=== PATIENT | female | born 1965 | race Caucasian/White ===

== ENCOUNTER 2016-10-17 12:09 | Observation (INO) | payer OTHER ==
[~2016-10-17] VITALS: Ht 157.5 cm; Wt 87.2 kg
[~2016-10-17 12:09] MED LIST: ADVAIR 250/501 DISK IH; AMITRIPTYLINE100 MG PO; AMLODIPINE BESYL5 MG PO; BIOTENE ORALBAL42 GM MM; CLONIDINE HCL0.1 MG PO; CYANOCOBALAM1000 MCG PO; DIOVAN HCT 11 TABLE1 PO; DOXYCYCLINE HY100 MG PO; GABAPENTIN300 MG PO; HYDROCHLOROTHIA25 MG PO; HYDROMET SYRUP480 ML PO; LEVAQUIN750 MG PO; METHADONE10 MG PO; MS CONTIN,ORAMO15 M1 PO; MYCOSTATIN 100,60 ML PO; OXYCODONE-APAP1 EACH PO; PERCOCET 10/1 TABLET PO; PREDNISONE5 MG PO; QUETIAPINE FUMA25 MG PO; SEROQUEL12.5 MG PO; SEROQUEL50 MG PO; SPIRIVA RESPIMAT4 GM IH; TESSALON PERLE100 MG PO; TIZANIDINE HCL4 M1 PO; TIZANIDINE HCL4 MG PO; TRAZODONE HCL50 MG PO; UNABLE TO OBTAIN; VALSARTAN-HCTZ1 EAC2 PO; VENTOLIN HFA18 GM IH; XANAX0.5 MG PO; ZANAFLEX4 MG PO; ZITHROMAX500 MG PO
[2016-10-17 13:38] LABS: HEMATOCRIT 33.2 % (36.0-46.0); MCH 24.4 PG (29.0-34.0); MCHC 31.9 G/DL (30.0-36.0); MCV 76.3 FL (83-99); MEAN PLAT.VOLUME 8.7 uM^3 (9.5-12.4); PLATELET COUNT 388 K/uL (156-360); RBC DIS.WIDTH-CV 17.4 % (11.8-14.6); RBC DIS.WIDTH-SD 45.9 % (39-53); RED BLOOD COUNT 4.35 M/uL (3.80-5.20); WHITE BLOOD COUNT 20.3 K/uL (4.1-10.2)
[2016-10-17 13:39] LABS: EOSINOPHIL (%) 0.3 % (0-5); EOSINOPHIL COUNT 0.1 K/uL (0-0.3); IMMATURE GRANULOCYTE (%) 0.2 % (0.0-0.7); IMMATURE GRANULOCYTE COUNT 0.4 K/uL; LYMPHOCYTE COUNT 1.1 K/uL (1.0-2.8); MONOCYTE (%) 4.2 % (3-12); MONOCYTE COUNT 0.9 K/uL (0-0.8); NEUTROPHIL (%) 89.9 % (45-76); NEUTROPHIL COUNT 18.3 K/uL (1.8-6.4)
[2016-10-17 13:49] LABS: CHLORIDE 105 mEq/L (99-109); POTASSIUM 4.5 mEq/L (3.7-5.4); SODIUM 138 mEq/L (136-147)
[2016-10-17 13:51] LABS: GLUCOSE 131 mg/dL (70-99)
[2016-10-17 13:52] LABS: ANION GAP 10 MEQ/L (2-14)
[2016-10-17 13:53] LABS: TOTAL BILIRUBIN 0.5 mg/dL (0.0-1.0)
[2016-10-17 13:55] LABS: ALKALINE PHOSPHATASE 117 IU/L (3-129); GFR ESTIMATE (CALCULATED) > 59 mL/min/
[2016-10-17 13:56] LABS: UREA NITROGEN (BUN) 15 mg/dL (9-23)
[2016-10-17 13:58] LABS: LIPASE 22 U/L (1.0-51.0)
[2016-10-17 13:59] LABS: TROP-I INTERPRETATION NEGATIVE; TROPONIN-I < 0.01 ng/mL (0.0-0.30)
[2016-10-17 15:46] LABS: BILIRUBIN NEGATIVE; BLOOD NEGATIVE; COLOR YELLOW ((YELLOW)); GLUCOSE (STRIP) NEGATIVE; KETONES NEGATIVE; LEUKOCYTES NEGATIVE; NITRITE NEGATIVE; PROTEIN (STRIP) NEGATIVE; SPECIFIC GRAVITY 1.018 (1.000-1.030); UROBILINOGEN 0.2 MG/DL (0.2-1.0)
[2016-10-17 15:54] LABS: ADD MIUA? NO; UCUL ADDED? NO
[2016-10-17] MEDS ORDERED: AMBIEN10 MG PO (20:59)
[2016-10-17] MEDS ORDERED: TRAZODONE HCL50 MG PO (21:00)
[2016-10-17] MEDS ORDERED: LAMICTAL25 MG PO (21:00)
[2016-10-17] MEDS ORDERED: GEODON40 MG PO (21:01)
[2016-10-17] MEDS ORDERED: MOTRIN IB200 MG PO (21:01)
[2016-10-18 00:49] LABS: TROP-I INTERPRETATION NEGATIVE; TROPONIN-I < 0.01 ng/mL (0.0-0.30)
[2016-10-18 01:11] VITALS: BP 132/59
[2016-10-18 02:21] LABS: ADD MIUA? NO; BILIRUBIN NEGATIVE; BLOOD NEGATIVE; COLOR STRAW ((YELLOW)); GLUCOSE (STRIP) NEGATIVE; KETONES NEGATIVE; LEUKOCYTES NEGATIVE; NITRITE NEGATIVE; PROTEIN (STRIP) NEGATIVE; SPECIFIC GRAVITY 1.014 (1.000-1.030); UCUL ADDED? NO; UROBILINOGEN 0.2 MG/DL (0.2-1.0)
[2016-10-18 02:46] LABS: C DIFF TOXIN NEGATIVE (NEGATIVE)
[2016-10-18 02:54] LABS: PROBE CHECK PASS; SPECIMEN PROCESSING CONTROL PASS
[2016-10-18 05:00] VITALS: BP 106/54
[2016-10-18 06:57] LABS: EOSINOPHIL (%) 1.1 % (0-5); EOSINOPHIL COUNT 0.2 K/uL (0-0.3); HEMATOCRIT 24.9 % (36.0-46.0); IMMATURE GRANULOCYTE (%) 0.2 % (0.0-0.7); MCH 24.6 PG (29.0-34.0); MCHC 31.7 G/DL (30.0-36.0); MCV 77.6 FL (83-99); MONOCYTE (%) 4.5 % (3-12); MONOCYTE COUNT 0.7 K/uL (0-0.8); NEUTROPHIL (%) 73.3 % (45-76); NEUTROPHIL COUNT 10.5 K/uL (1.8-6.4); RBC DIS.WIDTH-CV 17.5 % (11.8-14.6); RBC DIS.WIDTH-SD 49.6 % (39-53); WHITE BLOOD COUNT 14.3 K/uL (4.1-10.2)
[2016-10-18 07:12] LABS: ANION GAP 9 MEQ/L (2-14); CHLORIDE 106 MEQ/L (99-109); SAMPLE HEMOLYSIS CHECK 0; SAMPLE ICTERIC CHECK 0; SAMPLE LIPEMIA CHECK 0; SODIUM 137 MEQ/L (136-147)
[2016-10-18 07:14] LABS: POTASSIUM 3.5 MEQ/L (3.7-5.4)
[2016-10-18 07:18] LABS: GFR ESTIMATE (CALCULATED) > 59 mL/min/; UREA NITROGEN (BUN) 18 mg/dL (9-23)
[2016-10-18 07:20] LABS: RED BLOOD COUNT 3.21 M/uL (3.80-5.20)
[2016-10-18 07:21] LABS: GLUCOSE 92 mg/dL (70-99); TROP-I INTERPRETATION NEGATIVE; TROPONIN-I < 0.01 ng/mL (0.0-0.30)
[2016-10-18 08:24] LABS: PLATELET COUNT UNABLE TO REPORT K/uL (156-360); USER ID TLW
[2016-10-18 08:39] VITALS: BP 93/44
[2016-10-18 12:03] VITALS: BP 143/59
[2016-10-18 12:03] LABS: HEMATOCRIT 29.4 % (36.0-46.0); MCV 77.8 FL (83-99)
[2016-10-18] MEDS ORDERED: ZOFRAN4 MG PO (14:12)
[2016-10-18] MEDS ORDERED: PROTONIX40 MG PO (14:12)
== END 2016-10-18 17:09 | disposition home or self-care (01) ==
LOC: EME → EDBD 12:09 → EDOF 23:37 → 5WEST 10-18 00:46
PROVIDERS: Emergency Medicine; Hospitalist; Internal Medicine
DX: K52.9 Noninfective gastroenteritis and colitis, unspecified (principal); R10.13 Epigastric pain; G89.29 Other chronic pain; Z79.891 Long term (current) use of opiate analgesic; Z98.84 Bariatric surgery status; Z87.898 Personal history of other specified conditions; Z88.0 Allergy status to penicillin; Z82.3 Family history of stroke; Z80.42 Family history of malignant neoplasm of prostate; Z80.52 Family history of malignant neoplasm of bladder; Z82.49 Family history of ischemic heart disease and other diseases of the circulatory system
CPT/HCPCS: 71020; 74177; 80048; 80053; 81003; 82272; 83605; 83690; 83735; 84484; 85014; 85018; 85025; 87040; 87493; 93005; 94640; 99202; 99281; 99285; C9113; G0378; J1650; J2270; J2405; J2765; J3480; J7030

== ENCOUNTER 2017-01-18 00:41 | Inpatient (IN) | payer OTHER ==
[~2017-01-18] VITALS: Ht 157.5 cm; Wt 94.2 kg
[~2017-01-18 00:41] MED LIST changes: +AMBIEN10 MG PO; +GEODON40 MG PO; +LAMICTAL25 MG PO; +MOTRIN IB200 MG PO; +PROTONIX40 MG PO; +ZOFRAN4 MG PO
[2017-01-18 01:50] LABS: HEMATOCRIT 34.2 % (36.0-46.0); MCH 23.1 PG (29.0-34.0); MCHC 29.5 G/DL (30.0-36.0); MCV 78.3 FL (83-99); MEAN PLAT.VOLUME 8.6 uM^3 (9.5-12.4); PLATELET COUNT 274 K/uL (156-360); RBC DIS.WIDTH-SD 48.2 % (39-53); RED BLOOD COUNT 4.37 M/uL (3.80-5.20); WHITE BLOOD COUNT 11.8 K/uL (4.1-10.2)
[2017-01-18 02:03] LABS: CHLORIDE 100 mEq/L (99-109); POTASSIUM 3.4 mEq/L (3.7-5.4); SODIUM 131 mEq/L (136-147)
[2017-01-18 02:05] LABS: GLUCOSE 96 mg/dL (70-99)
[2017-01-18 02:06] LABS: ANION GAP 14 MEQ/L (2-14)
[2017-01-18 02:07] LABS: TOTAL BILIRUBIN 0.2 mg/dL (0.0-1.0)
[2017-01-18 02:09] LABS: ALKALINE PHOSPHATASE 94 IU/L (3-129); GFR ESTIMATE (CALCULATED) 51 mL/min/
[2017-01-18 02:10] LABS: UREA NITROGEN (BUN) 24 mg/dL (9-23)
[2017-01-18 02:12] LABS: LIPASE 18 U/L (1.0-51.0)
[2017-01-18 02:18] LABS: TROP-I INTERPRETATION NEGATIVE; TROPONIN-I < 0.01 ng/mL (0.0-0.30)
[2017-01-18 03:53] LABS: D-DIMER ELISA 1.55 mg/L FEU (< 0.57); PTT 23.8 (25-32)
[2017-01-18 04:16] LABS: BILIRUBIN NEGATIVE; BLOOD NEGATIVE; COLOR YELLOW ((YELLOW)); GLUCOSE (STRIP) NEGATIVE; KETONES NEGATIVE; LEUKOCYTES NEGATIVE; NITRITE NEGATIVE; PROTEIN (STRIP) NEGATIVE; SPECIFIC GRAVITY 1.014 (1.000-1.030); UROBILINOGEN 0.2 MG/DL (0.2-1.0)
[2017-01-18 04:17] LABS: ADD MIUA? NO; UCUL ADDED? NO
[2017-01-18 06:02] LABS: BASE EXCESS -4.4 mEq/L (-3 to +3); BICARBONATE 22.1 mEq/L (22-26); CARBOXY HGB 0 % (0-5); METHEMOGLOBIN 0.3 % (0-1.5); PO2 72 mm Hg (80-100)
[2017-01-18 06:03] LABS: COMMENTS - BLOOD GASES A+C+; DEVICE NC; O2 FLOW 2 L/MIN; PCO2 47 mm Hg (35-45); SITE RR; pH 7.28 (7.35-7.45)
[2017-01-18 06:22] VITALS: BP 107/57
[2017-01-18 09:01] VITALS: BP 104/46
[2017-01-18 11:19] VITALS: BP 118/65
[2017-01-18 12:11] LABS: BASE EXCESS -3.2 mEq/L (-3 to +3); BICARBONATE 23.1 mEq/L (22-26); CARBOXY HGB 0 % (0-5); METHEMOGLOBIN 0.9 % (0-1.5); PCO2 47 mm Hg (35-45); PO2 64 mm Hg (80-100)
[2017-01-18 12:12] LABS: COMMENTS - BLOOD GASES +C; DEVICE NC; O2 FLOW 1 L/MIN; SITE RR +A; TOTAL RESP RATE 32 resp/min
[2017-01-18] MEDS ORDERED: TRAZODONE HCL100 MG PO (13:09)
[2017-01-18] MEDS ORDERED: LAMICTAL100 MG PO (13:09)
[2017-01-18] MEDS ORDERED: CYMBALTA60 MG PO (13:12)
[2017-01-18] MEDS ORDERED: ZOLOFT100 MG PO (13:12)
[2017-01-18] MEDS ORDERED: GABAPENTIN300 MG PO ×2 (13:12→13:26)
[2017-01-18 16:55] VITALS: BP 108/57
[2017-01-18 17:16] LABS: EOSINOPHIL (%) 0 % (0-5); HEMATOCRIT 28.6 % (36.0-46.0); IMMATURE GRANULOCYTE (%) 1.4 % (0.0-0.7); IMMATURE GRANULOCYTE COUNT 0.3 K/uL; INSTRUMENT ABS NEUTROPHIL CT 20.6 K/uL; LYMPHOCYTE COUNT 1.3 K/uL (1.0-2.8); MCH 23.3 PG (29.0-34.0); MCHC 30.1 G/DL (30.0-36.0); MCV 77.5 FL (83-99); MONOCYTE (%) 3.7 % (3-12); MONOCYTE COUNT 0.9 K/uL (0-0.8); NEUTROPHIL (%) 89.4 % (45-76); NEUTROPHIL COUNT 20.6 K/uL (1.8-6.4); RBC DIS.WIDTH-CV 17.1 % (11.8-14.6); RBC DIS.WIDTH-SD 48.1 % (39-53); RED BLOOD COUNT 3.69 M/uL (3.80-5.20)
[2017-01-18 17:21] LABS: CHLORIDE 103 mEq/L (99-109); SODIUM 133 mEq/L (136-147)
[2017-01-18 17:23] LABS: GLUCOSE 87 mg/dL (70-99)
[2017-01-18 17:24] LABS: ANION GAP 8 MEQ/L (2-14)
[2017-01-18 17:26] LABS: GFR ESTIMATE (CALCULATED) > 59 mL/min/
[2017-01-18 17:27] LABS: UREA NITROGEN (BUN) 21 mg/dL (9-23)
[2017-01-18 17:54] LABS: HEMATOLOGY COMMENT 1 SN; MEAN PLAT.VOLUME 9.4 uM^3 (9.5-12.4); PLAT.SUFFICIENCY ADEQUATE; PLATELET COUNT 246 K/uL (156-360)
[2017-01-18 18:03] LABS: WHITE BLOOD COUNT 23.1 K/uL (4.1-10.2)
[2017-01-18 19:30] VITALS: BP 110/56
[2017-01-19 00:20] VITALS: BP 121/58
[2017-01-19 04:30] VITALS: BP 115/56
[2017-01-19 07:55] LABS: EOSINOPHIL (%) 0.6 % (0-5); EOSINOPHIL COUNT 0.1 K/uL (0-0.3); HEMATOCRIT 25.3 % (36.0-46.0); IMMATURE GRANULOCYTE (%) 0.5 % (0.0-0.7); IMMATURE GRANULOCYTE COUNT 0.1 K/uL; LYMPHOCYTE COUNT 1.4 K/uL (1.0-2.8); MCH 23.5 PG (29.0-34.0); MCHC 30.4 G/DL (30.0-36.0); MCV 77.4 FL (83-99); MEAN PLAT.VOLUME 9.7 uM^3 (9.5-12.4); MONOCYTE (%) 3.1 % (3-12); MONOCYTE COUNT 0.5 K/uL (0-0.8); NEUTROPHIL (%) 86.4 % (45-76); PLATELET COUNT 258 K/uL (156-360); RBC DIS.WIDTH-CV 17.2 % (11.8-14.6); RBC DIS.WIDTH-SD 48.8 % (39-53); RED BLOOD COUNT 3.27 M/uL (3.80-5.20)
[2017-01-19 08:12] LABS: INTERNAL CONTROL VALID? YES
[2017-01-19 08:24] LABS: CHLORIDE 111 mEq/L (99-109); POTASSIUM 4.1 mEq/L (3.7-5.4)
[2017-01-19 08:25] LABS: MAGNESIUM 2.1 mg/dL (1.3-2.7); SODIUM 144 mEq/L (136-147)
[2017-01-19 08:27] LABS: GLUCOSE 89 mg/dL (70-99)
[2017-01-19 08:28] LABS: ANION GAP 8 MEQ/L (2-14)
[2017-01-19 08:30] LABS: ALKALINE PHOSPHATASE 83 IU/L (3-129); GFR ESTIMATE (CALCULATED) > 59 mL/min/; TOTAL BILIRUBIN 0.3 mg/dL (0.0-1.0)
[2017-01-19 08:31] LABS: UREA NITROGEN (BUN) 17 mg/dL (9-23)
[2017-01-19 10:35] VITALS: BP 110/56
[2017-01-19] MEDS ORDERED: RISPERDAL1 MG PO (12:31)
[2017-01-19 12:36] LABS: HEMATOCRIT 25.6 % (36.0-46.0); MCV 77.6 FL (83-99)
[2017-01-19 12:45] VITALS: BP 165/79
[2017-01-19 16:33] VITALS: BP 117/70
[2017-01-19 19:23] VITALS: BP 128/81
[2017-01-20 00:05] VITALS: BP 120/78
[2017-01-20 04:34] VITALS: BP 116/72
[2017-01-20 08:50] LABS: HEMATOCRIT 24.7 % (36.0-46.0); MCH 23.5 PG (29.0-34.0); MCHC 30.8 G/DL (30.0-36.0); MCV 76.5 FL (83-99); MEAN PLAT.VOLUME 9.3 uM^3 (9.5-12.4); PLATELET COUNT 262 K/uL (156-360); RBC DIS.WIDTH-CV 17.3 % (11.8-14.6); RBC DIS.WIDTH-SD 47.3 % (39-53); RED BLOOD COUNT 3.23 M/uL (3.80-5.20); WHITE BLOOD COUNT 11.8 K/uL (4.1-10.2)
[2017-01-20 09:06] LABS: CHLORIDE 110 mEq/L (99-109); GLUCOSE 92 mg/dL (70-99); POTASSIUM 4.2 mEq/L (3.7-5.4); SODIUM 144 mEq/L (136-147)
[2017-01-20 09:07] VITALS: BP 130/90
[2017-01-20 09:07] LABS: ANION GAP 8 MEQ/L (2-14)
[2017-01-20 09:09] LABS: ALKALINE PHOSPHATASE 81 IU/L (3-129)
[2017-01-20 09:10] LABS: GFR ESTIMATE (CALCULATED) > 59 mL/min/
[2017-01-20 09:11] LABS: TOTAL BILIRUBIN 0.4 mg/dL (0.0-1.0); UREA NITROGEN (BUN) 10 mg/dL (9-23)
[2017-01-20 10:18] LABS: IRON 24 MCG/DL (35-150)
[2017-01-20 10:28] LABS: FERRITIN 59 NG/ML (10-291)
[2017-01-20 11:55] VITALS: BP 173/86
[2017-01-20] MEDS ORDERED: PANTOPRAZOLE SO40 MG PO (12:36)
[2017-01-20] MEDS ORDERED: CYANOCOBALAM1000 MCG PO (12:37)
[2017-01-20] MEDS ORDERED: LEVAQUIN750 MG PO (12:37)
[2017-01-20] MEDS ORDERED: FLOVENT 11120 INHALA IH (12:38)
[2017-01-20 14:11] LABS: IMM.RETIC FRACTION 25.5 % (3-19); RETIC HGB EQUIVALENT 29.7 (28-36); RETICULOCYTE COUNT 1.1 % (0.5-1.8)
== END 2017-01-20 15:54 | disposition home or self-care (01) | DRG 871 ==
LOC: EME → EDBD 00:41 → EDOF 04:33 → 4EAST 04:33 → 5SOUTH 04:33 → 4EAST 07:12 → 5SOUTH 01-19 21:18 → 4EAST 01-19 21:27
PROVIDERS: Emergency Medicine; Hospitalist; Physician Assistant Medical
DX: A41.9 Sepsis, unspecified organism (principal); J69.0 Pneumonitis due to inhalation of food and vomit; J96.01 Acute respiratory failure with hypoxia; E87.4 Mixed disorder of acid-base balance; D64.9 Anemia, unspecified; I10 Essential (primary) hypertension; G89.29 Other chronic pain; R56.9 Unspecified convulsions; K44.9 Diaphragmatic hernia without obstruction or gangrene; E78.5 Hyperlipidemia, unspecified; R91.1 Solitary pulmonary nodule; F31.9 Bipolar disorder, unspecified; M54.9 Dorsalgia, unspecified; F41.9 Anxiety disorder, unspecified; F41.0 Panic disorder [episodic paroxysmal anxiety]; E66.9 Obesity, unspecified; F10.10 Alcohol abuse, uncomplicated; Z68.38 Body mass index [BMI] 38.0-38.9, adult; G43.909 Migraine, unspecified, not intractable, without status migrainosus; Z87.898 Personal history of other specified conditions; Z98.1 Arthrodesis status; Z90.49 Acquired absence of other specified parts of digestive tract; Z88.0 Allergy status to penicillin; Z98.84 Bariatric surgery status; Z87.01 Personal history of pneumonia (recurrent); Z68.41 Body mass index [BMI] 40.0-44.9, adult
CPT/HCPCS: 36600; 71020; 71275; 80048 91; 80053; 81003; 82607; 82728; 82746; 82803; 82948; 83540; 83605; 83690; 83735; 83880; 84466; 84484; 85014; 85018; 85025; 85027; 85045; 85379; 85610; 85730; 87040; 87070; 87205; 87449; 93005; 94640; 94640 76; 94760; 94799; 99202; 99281; 99285; J1650; J1956; J3420; J7030; J7050; J7120; J7644; Q0138; S0030

== ENCOUNTER 2017-02-19 00:15 | Observation (INO) | payer OTHER ==
[~2017-02-19] VITALS: Ht 157.5 cm; Wt 88.7 kg
[~2017-02-19 00:15] MED LIST changes: +CYMBALTA60 MG PO; +FLOVENT 11120 INHALA IH; +LAMICTAL100 MG PO; +PANTOPRAZOLE SO40 MG PO; +RISPERDAL1 MG PO; +TRAZODONE HCL100 MG PO; +ZOLOFT100 MG PO
[2017-02-19 01:22] LABS: CHLORIDE 104 mEq/L (99-109); POTASSIUM 3.4 mEq/L (3.7-5.4); PROTHROMBIN TIME 10.2 (9.2-11.2); PTT 24.6 (25-32); SODIUM 139 mEq/L (136-147)
[2017-02-19 01:25] LABS: GLUCOSE 87 mg/dL (70-99)
[2017-02-19 01:26] LABS: ANION GAP 11 MEQ/L (2-14)
[2017-02-19 01:27] LABS: TOTAL BILIRUBIN 0.2 mg/dL (0.0-1.0)
[2017-02-19 01:28] LABS: ALKALINE PHOSPHATASE 117 IU/L (3-129); GFR ESTIMATE (CALCULATED) > 59 mL/min/
[2017-02-19 01:28] LABS: EOSINOPHIL (%) 1.5 % (0-5); EOSINOPHIL COUNT 0.1 K/uL (0-0.3); HEMATOCRIT 37.9 % (36.0-46.0); IMMATURE GRANULOCYTE (%) 0.4 % (0.0-0.7); INSTRUMENT ABS NEUTROPHIL CT 4.5 K/uL; LYMPHOCYTE COUNT 1.8 K/uL (1.0-2.8); MCH 25.5 PG (29.0-34.0); MCHC 30.9 G/DL (30.0-36.0); MEAN PLAT.VOLUME 9.1 uM^3 (9.5-12.4); MONOCYTE (%) 5.3 % (3-12); MONOCYTE COUNT 0.4 K/uL (0-0.8); NEUTROPHIL (%) 66.1 % (45-76); NEUTROPHIL COUNT 4.5 K/uL (1.8-6.4); PLATELET COUNT 230 K/uL (156-360); RBC DIS.WIDTH-CV 22.2 % (11.8-14.6); RBC DIS.WIDTH-SD 65.4 % (39-53); WHITE BLOOD COUNT 6.8 K/uL (4.1-10.2)
[2017-02-19 01:29] LABS: MCV 82.8 FL (83-99); RED BLOOD COUNT 4.58 M/uL (3.80-5.20)
[2017-02-19 01:29] LABS: UREA NITROGEN (BUN) 7 mg/dL (9-23)
[2017-02-19 01:32] LABS: LIPASE 15 U/L (1.0-51.0); TROP-I INTERPRETATION NEGATIVE; TROPONIN-I < 0.01 ng/mL (0.0-0.30)
[2017-02-19 03:22] LABS: ADD MIUA? NO; BILIRUBIN NEGATIVE; BLOOD NEGATIVE; COLOR STRAW ((YELLOW)); GLUCOSE (STRIP) NEGATIVE; KETONES NEGATIVE; LEUKOCYTES NEGATIVE; NITRITE NEGATIVE; PROTEIN (STRIP) NEGATIVE; SPECIFIC GRAVITY 1.004 (1.000-1.030); UCUL ADDED? NO; UROBILINOGEN 0.2 MG/DL (0.2-1.0)
[2017-02-19 06:29] VITALS: BP 171/86
[2017-02-19] MEDS ORDERED: CYMBALTA30 MG PO (11:02)
[2017-02-19] MEDS ORDERED: CYANOCOBALAM1000 MCG PO (11:05)
[2017-02-19] MEDS ORDERED: SERTRALINE HCL100 MG PO (11:05)
[2017-02-19] MEDS ORDERED: VALSARTAN-HCTZ1 EAC2 PO (11:11)
[2017-02-19 12:07] LABS: TROP-I INTERPRETATION NEGATIVE; TROPONIN-I < 0.01 ng/mL (0.0-0.30)
[2017-02-19 12:17] LABS: AMPHETAMINES QUANT VALUE 0 NG/ML; BARBITUATES QUANT VALUE 0 NG/ML; BENZODIAZEPINES QUANT VALUE 0 NG/ML; BENZODIAZEPINES, URINE SCREEN Negative (200 ng/mL); MARIJUANA QUANT VALUE 0 NG/ML; OPIATES QUANTITATIVE VALUE 0 NG/ML; PHENCYCLIDINE QUANT VALUE 0 NG/ML
[2017-02-19 16:53] VITALS: BP 177/114
[2017-02-19 18:18] LABS: TROP-I INTERPRETATION NEGATIVE; TROPONIN-I < 0.01 ng/mL (0.0-0.30)
[2017-02-19 18:49] VITALS: BP 178/91
== END 2017-02-19 22:52 | disposition home or self-care (01) ==
LOC: EME → EDBD 00:15 → EDOF 04:29 → 5WEST 06:17
PROVIDERS: Emergency Medicine; Hospitalist
DX: R55 Syncope and collapse (principal); E86.0 Dehydration; E11.9 Type 2 diabetes mellitus without complications; I10 Essential (primary) hypertension; F31.9 Bipolar disorder, unspecified; G43.909 Migraine, unspecified, not intractable, without status migrainosus; J45.909 Unspecified asthma, uncomplicated; E78.00 Pure hypercholesterolemia, unspecified; G89.29 Other chronic pain; M54.9 Dorsalgia, unspecified; F11.20 Opioid dependence, uncomplicated; F41.0 Panic disorder [episodic paroxysmal anxiety]; Z98.84 Bariatric surgery status; E66.9 Obesity, unspecified; Z68.35 Body mass index [BMI] 35.0-35.9, adult
CPT/HCPCS: 70450; 71010; 80053; 80306 90; 81003; 83605; 83690; 84484; 85025; 85610; 85730; 87040; 93005; 93880; 95819; 99281; 99284; G0378; J7030

== ENCOUNTER 2017-06-16 16:39 | Inpatient (IN) | payer OTHER ==
[~2017-06-16] VITALS: Ht 157.5 cm; Wt 90.0 kg
[~2017-06-16 16:39] MED LIST changes: +CYMBALTA30 MG PO; +SERTRALINE HCL100 MG PO
[2017-06-16 18:10] LABS: HEMATOCRIT 38.9 % (36.0-46.0); MCH 28.5 PG (29.0-34.0); MCHC 34.2 G/DL (30.0-36.0); MCV 83.3 FL (83-99); MEAN PLAT.VOLUME 9.2 uM^3 (9.5-12.4); PLATELET COUNT 493 K/uL (156-360); RBC DIS.WIDTH-CV 15.6 % (11.8-14.6); RBC DIS.WIDTH-SD 47.2 % (39-53); RED BLOOD COUNT 4.67 M/uL (3.80-5.20); WHITE BLOOD COUNT 8.4 K/uL (4.1-10.2)
[2017-06-16 18:21] LABS: CHLORIDE 108 mEq/L (99-109); POTASSIUM 3.3 mEq/L (3.7-5.4); SODIUM 143 mEq/L (136-147)
[2017-06-16 18:22] LABS: GLUCOSE 97 mg/dL (70-99)
[2017-06-16 18:24] LABS: ANION GAP 19 MEQ/L (2-14)
[2017-06-16 18:34] LABS: TROP-I INTERPRETATION NEGATIVE; TROPONIN-I 0.01 ng/mL (0.0-0.30)
[2017-06-16 18:41] LABS: GFR ESTIMATE (CALCULATED) > 59 mL/min/; UREA NITROGEN (BUN) 18 mg/dL (9-23)
[2017-06-16 18:49] LABS: QUANTITATIVE HCG < 4.0 MIU/ML
[2017-06-16 20:52] VITALS: BP 167/95
[2017-06-16] MEDS ORDERED: DESYREL100 MG PO (21:17)
[2017-06-16] MEDS ORDERED: TYLENOL EXTRA500 MG PO (21:18)
[2017-06-17 00:04] VITALS: BP 108/66
[2017-06-17 01:08] LABS: TROP-I INTERPRETATION NEGATIVE; TROPONIN-I < 0.01 ng/mL (0.0-0.30)
[2017-06-17 04:31] VITALS: BP 97/62
[2017-06-17 05:46] LABS: TROP-I INTERPRETATION NEGATIVE; TROPONIN-I < 0.01 ng/mL (0.0-0.30)
[2017-06-17 06:02] LABS: ANION GAP 10 MEQ/L (2-14); CHLORIDE 110 MEQ/L (99-109); GFR ESTIMATE (CALCULATED) 51 mL/min/; GLUCOSE 85 mg/dL (70-99); HDL CHOLESTEROL 43 MG/DL (Desirable>=50); LDL CHOLESTEROL 134 mg/dL (Desirable<100); MAGNESIUM 1.4 mg/dl (1.3-2.7); NON-HDL CHOLESTEROL 154 mg/dL (Desirable<160); POTASSIUM 3.6 MEQ/L (3.7-5.4); SAMPLE HEMOLYSIS CHECK 0; SAMPLE ICTERIC CHECK 0; SAMPLE LIPEMIA CHECK 0; SODIUM 140 MEQ/L (136-147); TOTAL CHOLESTEROL 197 mg/dL (Desirable<200); TRIGLYCERIDES 101 MG/DL (Normal: <150); UREA NITROGEN (BUN) 20 mg/dL (9-23)
[2017-06-17 06:13] LABS: SERUM ETHYL ALCOHOL < 10 mg/dL
[2017-06-17 06:30] LABS: HEMATOCRIT 32.8 % (36.0-46.0); MCH 28.9 PG (29.0-34.0); MCHC 32.9 G/DL (30.0-36.0); MEAN PLAT.VOLUME 10.3 uM^3 (9.5-12.4); PLATELET COUNT 359 K/uL (156-360); RBC DIS.WIDTH-CV 16.3 % (11.8-14.6); RBC DIS.WIDTH-SD 52.3 % (39-53); RED BLOOD COUNT 3.74 M/uL (3.80-5.20); WHITE BLOOD COUNT 7.8 K/uL (4.1-10.2)
[2017-06-17 06:32] LABS: MCV 87.7 FL (83-99)
[2017-06-17 08:56] VITALS: BP 84/58
[2017-06-17 11:55] VITALS: BP 88/62
[2017-06-17 13:30] LABS: ADD MIUA? NO; BILIRUBIN NEGATIVE; BLOOD NEGATIVE; COLOR YELLOW ((YELLOW)); GLUCOSE (STRIP) NEGATIVE; KETONES NEGATIVE; LEUKOCYTES NEGATIVE; NITRITE NEGATIVE; PROTEIN (STRIP) NEGATIVE; SPECIFIC GRAVITY 1.017 (1.000-1.030); UCUL ADDED? NO
[2017-06-17 13:31] LABS: AMPHETAMINES QUANT VALUE 0 NG/ML; BARBITUATES QUANT VALUE 0 NG/ML; BENZODIAZEPINES QUANT VALUE 0 NG/ML; BENZODIAZEPINES, URINE SCREEN Negative (200 ng/mL); MARIJUANA QUANT VALUE 0 NG/ML; OPIATES QUANTITATIVE VALUE 0 NG/ML; PHENCYCLIDINE QUANT VALUE 0 NG/ML
[2017-06-17 14:29] VITALS: BP 98/72
[2017-06-17 15:48] VITALS: BP 114/72
[2017-06-18] VITALS (7 sets, daily range): BP systolic 93–135; BP diastolic 48–71
[2017-06-18 05:13] LABS: BASOPHIL COUNT 0.1 K/uL (0-0.1); EOSINOPHIL (%) 2.9 % (0-5); EOSINOPHIL COUNT 0.3 K/uL (0-0.3); HEMATOCRIT 31.9 % (36.0-46.0); IMMATURE GRANULOCYTE (%) 0.2 % (0.0-0.7); INSTRUMENT ABS NEUTROPHIL CT 5.6 K/uL; LYMPHOCYTE COUNT 2.6 K/uL (1.0-2.8); MCH 27.8 PG (29.0-34.0); MCHC 30.7 G/DL (30.0-36.0); MCV 90.6 FL (83-99); MEAN PLAT.VOLUME 9.1 uM^3 (9.5-12.4); MONOCYTE (%) 5.8 % (3-12); MONOCYTE COUNT 0.5 K/uL (0-0.8); NEUTROPHIL (%) 61.4 % (45-76); NEUTROPHIL COUNT 5.6 K/uL (1.8-6.4); PLATELET COUNT 321 K/uL (156-360); RBC DIS.WIDTH-CV 16.4 % (11.8-14.6); RBC DIS.WIDTH-SD 54.4 % (39-53); RED BLOOD COUNT 3.52 M/uL (3.80-5.20)
[2017-06-18 05:34] LABS: ALKALINE PHOSPHATASE 121 IU/L (3-129); ANION GAP 10 MEQ/L (2-14); CHLORIDE 108 MEQ/L (99-109); GFR ESTIMATE (CALCULATED) 39 mL/min/; GLUCOSE 102 mg/dL (70-99); SAMPLE HEMOLYSIS CHECK 0; SAMPLE ICTERIC CHECK 0; SAMPLE LIPEMIA CHECK 0; SODIUM 140 MEQ/L (136-147); TOTAL BILIRUBIN 0.6 MG/DL (0.0-1.0); UREA NITROGEN (BUN) 27 mg/dL (9-23)
[2017-06-19 04:29] VITALS: BP 117/58
[2017-06-19 07:55] VITALS: BP 115/87
[2017-06-19 10:59] VITALS: BP 114/57
[2017-06-19 12:08] LABS: ANION GAP 4 MEQ/L (2-14); CHLORIDE 111 MEQ/L (99-109); GFR ESTIMATE (CALCULATED) > 59 mL/min/; GLUCOSE 89 mg/dL (70-99); POTASSIUM 4.1 MEQ/L (3.7-5.4); SAMPLE HEMOLYSIS CHECK 0; SAMPLE ICTERIC CHECK 0; SAMPLE LIPEMIA CHECK 0; SODIUM 142 MEQ/L (136-147); UREA NITROGEN (BUN) 19 mg/dL (9-23)
[2017-06-19 16:45] VITALS: BP 124/65
[2017-06-19 19:20] VITALS: BP 137/74
[2017-06-19 23:24] VITALS: BP 140/85
[2017-06-20 04:32] VITALS: BP 119/78
[2017-06-20 08:15] VITALS: BP 160/84
[2017-06-20 12:13] VITALS: BP 117/62
[2017-06-20] MEDS ORDERED: METHADONE10 MG PO (16:25)
== END 2017-06-20 17:07 | disposition home or self-care (01) | DRG 897 ==
LOC: EME 16:39 → EDOF 19:29 → 5WEST 19:29 → EDOF 19:29 → ENRESERV 19:30 → 5WEST 20:40 → CANRESERV 06-17 15:26 → ENRESERV 06-17 15:26 → 5WEST 06-20 17:07
PROVIDERS: Hospitalist; Physician Assistant Medical
DX: F19.959 Other psychoactive substance use, unspecified with psychoactive substance-induced psychotic disorder, unspecified (principal); F23 Brief psychotic disorder; F10.21 Alcohol dependence, in remission; I95.9 Hypotension, unspecified; I10 Essential (primary) hypertension; N17.9 Acute kidney failure, unspecified; E11.9 Type 2 diabetes mellitus without complications; I25.10 Atherosclerotic heart disease of native coronary artery without angina pectoris; F31.9 Bipolar disorder, unspecified; E87.6 Hypokalemia; F17.210 Nicotine dependence, cigarettes, uncomplicated; E53.8 Deficiency of other specified B group vitamins; F41.1 Generalized anxiety disorder; Z68.36 Body mass index [BMI] 36.0-36.9, adult; E78.5 Hyperlipidemia, unspecified; F41.0 Panic disorder [episodic paroxysmal anxiety]; K21.9 Gastro-esophageal reflux disease without esophagitis; Z79.899 Other long term (current) drug therapy; Z98.84 Bariatric surgery status; Z79.891 Long term (current) use of opiate analgesic; Z88.0 Allergy status to penicillin; J45.909 Unspecified asthma, uncomplicated; Z82.49 Family history of ischemic heart disease and other diseases of the circulatory system
CPT/HCPCS: 70450; 71020; 80048; 80053; 80061; 80306 90; 81003; 82140; 83605; 83735; 84484; 84702; 85025; 85027; 93005; 94799; 99202; 99281; 99285; G0378; G0480; G8987 GO CI; G8988 GO CH; J1644; J2060; J3411; J3475; J7030; J7050; S0028

== ENCOUNTER 2017-09-08 18:17 | Inpatient (IN) | payer OTHER ==
[~2017-09-08] VITALS: Ht 157.5 cm; Wt 88.8 kg
[~2017-09-08 18:17] MED LIST changes: +DESYREL100 MG PO; +TYLENOL EXTRA500 MG PO
[2017-09-08 19:51] LABS: HEMATOCRIT 41.1 % (36.0-46.0); HEMOGLOBIN 13.8 G/DL (11.9-15.5); MCH 28.8 PG (29.0-34.0); MCHC 33.6 G/DL (30.0-36.0); MCV 85.8 FL (83-99); PLATELET COUNT 567 K/uL (156-360); RBC DIS.WIDTH-CV 15.1 % (11.8-14.6); RBC DIS.WIDTH-SD 47.2 % (39-53); RED BLOOD COUNT 4.79 M/uL (3.80-5.20); WHITE BLOOD COUNT 24.8 K/uL (4.1-10.2)
[2017-09-08 20:11] LABS: ALBUMIN 4.1 g/dL (3.2-4.8); CHLORIDE 98 mEq/L (99-109); POTASSIUM 3.5 mEq/L (3.7-5.4); SODIUM 134 mEq/L (136-147)
[2017-09-08 20:13] LABS: GLUCOSE 144 mg/dL (70-99)
[2017-09-08 20:14] LABS: TOTAL PROTEIN 8.3 g/dL (6.4-8.3)
[2017-09-08 20:15] LABS: TOTAL BILIRUBIN 0.5 mg/dL (0.0-1.0)
[2017-09-08 20:17] LABS: ALKALINE PHOSPHATASE 165 IU/L (3-129); CREATININE 2.2 mg/dL (0.6-1.3); GFR ESTIMATE (CALCULATED) 25 mL/min/
[2017-09-08 20:18] LABS: UREA NITROGEN (BUN) 21 mg/dL (9-23)
[2017-09-08 20:19] LABS: AST (GOT) 13 IU/L (2-34)
[2017-09-08 20:20] LABS: ALT (GPT) 5 IU/L (3-49)
[2017-09-08 23:08] LABS: LIPASE 19 U/L (1.0-51.0)
[2017-09-09] MEDS ORDERED: OXYCODONE-APAP1 EACH PO (00:38)
[2017-09-09 04:42] LABS: BASOPHIL (%) 0.1 % (0-1); EOSINOPHIL (%) 0 % (0-5); HEMATOCRIT 40.4 % (36.0-46.0); HEMOGLOBIN 13.4 G/DL (11.9-15.5); IMMATURE GRANULOCYTE (%) 0.9 % (0.0-0.7); LYMPHOCYTE (%) 7.5 % (15-42); LYMPHOCYTE COUNT 1.7 K/uL (1.0-2.8); MCH 28.6 PG (29.0-34.0); MCHC 33.2 G/DL (30.0-36.0); MCV 86.1 FL (83-99); MONOCYTE (%) 4.2 % (3-12); NEUTROPHIL (%) 87.3 % (45-76); NEUTROPHIL COUNT 20.1 K/uL (1.8-6.4); PLATELET COUNT 508 K/uL (156-360); RBC DIS.WIDTH-CV 15.4 % (11.8-14.6); RBC DIS.WIDTH-SD 48.1 % (39-53); RED BLOOD COUNT 4.69 M/uL (3.80-5.20)
[2017-09-09 04:53] LABS: CHLORIDE 98 mEq/L (99-109); POTASSIUM 3.6 mEq/L (3.7-5.4); SODIUM 136 mEq/L (136-147)
[2017-09-09 04:55] LABS: GLUCOSE 162 mg/dL (70-99)
[2017-09-09 04:59] LABS: CREATININE 3.1 mg/dL (0.6-1.3); GFR ESTIMATE (CALCULATED) 17 mL/min/; UREA NITROGEN (BUN) 29 mg/dL (9-23)
[2017-09-09] MEDS ORDERED: METHADONE10 MG PO (16:52)
[2017-09-09 16:53] VITALS: BP 143/68
[2017-09-09 20:17] VITALS: BP 148/74
[2017-09-10 00:18] VITALS: BP 143/80
[2017-09-10 07:22] LABS: HEMATOCRIT 30.9 % (36.0-46.0); MCH 28.9 PG (29.0-34.0); MCHC 32.4 G/DL (30.0-36.0); MCV 89.3 FL (83-99); PLATELET COUNT 361 K/uL (156-360); RBC DIS.WIDTH-CV 15.5 % (11.8-14.6); RBC DIS.WIDTH-SD 50.3 % (39-53); WHITE BLOOD COUNT 10.2 K/uL (4.1-10.2)
[2017-09-10 07:23] LABS: RED BLOOD COUNT 3.46 M/uL (3.80-5.20)
[2017-09-10 07:45] LABS: CHLORIDE 106 MEQ/L (99-109); MAGNESIUM 2.5 mg/dl (1.3-2.7); PHOSPHORUS 2.6 mg/dL (2.5-4.9); POTASSIUM 3.8 MEQ/L (3.7-5.4); SODIUM 141 MEQ/L (136-147); UREA NITROGEN (BUN) 22 mg/dL (9-23)
[2017-09-10 07:47] LABS: CREATININE 1.1 MG/DL (0.6-1.3); GFR ESTIMATE (CALCULATED) 56 mL/min/; GLUCOSE 86 mg/dL (70-99)
[2017-09-10 09:08] VITALS: BP 131/76
[2017-09-10 12:38] VITALS: BP 130/75
[2017-09-10 16:13] VITALS: BP 132/70
[2017-09-11 00:29] VITALS: BP 148/72
[2017-09-11 06:55] LABS: HEMOGLOBIN 10.5 G/DL (11.9-15.5); MCH 28.2 PG (29.0-34.0); MCHC 31.8 G/DL (30.0-36.0); MCV 88.7 FL (83-99); PLATELET COUNT 370 K/uL (156-360); RBC DIS.WIDTH-CV 14.9 % (11.8-14.6); RBC DIS.WIDTH-SD 47.9 % (39-53); RED BLOOD COUNT 3.72 M/uL (3.80-5.20)
[2017-09-11 07:19] LABS: CHLORIDE 108 MEQ/L (99-109); GFR ESTIMATE (CALCULATED) > 59 mL/min/; GLUCOSE 90 mg/dL (70-99); POTASSIUM 3.3 MEQ/L (3.7-5.4); SODIUM 144 MEQ/L (136-147); UREA NITROGEN (BUN) 9 mg/dL (9-23)
[2017-09-11 07:20] LABS: CREATININE 0.6 MG/DL (0.6-1.3)
[2017-09-11 08:19] VITALS: BP 135/84
[2017-09-11 16:11] VITALS: BP 153/92
[2017-09-11 16:36] VITALS: BP 136/75
[2017-09-12 00:18] VITALS: BP 176/102
[2017-09-12 07:55] VITALS: BP 154/109
[2017-09-12 07:57] LABS: HEMATOCRIT 35.3 % (36.0-46.0); HEMOGLOBIN 11.4 G/DL (11.9-15.5); MCH 28.2 PG (29.0-34.0); MCHC 32.3 G/DL (30.0-36.0); MCV 87.4 FL (83-99); RBC DIS.WIDTH-CV 14.8 % (11.8-14.6); RBC DIS.WIDTH-SD 47.4 % (39-53); RED BLOOD COUNT 4.04 M/uL (3.80-5.20); WHITE BLOOD COUNT 8.2 K/uL (4.1-10.2)
[2017-09-12 08:06] LABS: CHLORIDE 107 MEQ/L (99-109); POTASSIUM 3.6 MEQ/L (3.7-5.4); SODIUM 144 MEQ/L (136-147)
[2017-09-12 08:11] LABS: CREATININE 0.5 MG/DL (0.6-1.3); GFR ESTIMATE (CALCULATED) > 59 mL/min/; GLUCOSE 94 mg/dL (70-99); UREA NITROGEN (BUN) 6 mg/dL (9-23)
[2017-09-12 08:30] LABS: HEMATOLOGY COMMENT 1 SMEAR COMPATIBLE; PLAT.SUFFICIENCY INCREASED; PLATELET COUNT 411 K/uL (156-360)
[2017-09-12 15:54] VITALS: BP 168/99
[2017-09-13 00:45] VITALS: BP 160/43
[2017-09-13 07:08] LABS: HEMOGLOBIN 10.7 G/DL (11.9-15.5); MCH 28.5 PG (29.0-34.0); MCHC 32.4 G/DL (30.0-36.0); PLATELET COUNT 352 K/uL (156-360); RBC DIS.WIDTH-CV 15.3 % (11.8-14.6); RED BLOOD COUNT 3.75 M/uL (3.80-5.20); WHITE BLOOD COUNT 8.9 K/uL (4.1-10.2)
[2017-09-13 07:18] VITALS: BP 132/90
[2017-09-13 07:27] LABS: CHLORIDE 106 MEQ/L (99-109); CREATININE 0.6 MG/DL (0.6-1.3); GFR ESTIMATE (CALCULATED) > 59 mL/min/; GLUCOSE 100 mg/dL (70-99); POTASSIUM 4.2 MEQ/L (3.7-5.4); SODIUM 144 MEQ/L (136-147); UREA NITROGEN (BUN) 4 mg/dL (9-23)
== END 2017-09-13 11:30 | disposition home or self-care (01) | DRG 388 ==
LOC: EME 18:17 → EDOF 09-09 02:42 → 5SOUTH 09-09 02:42 → ENRESERV 09-09 02:48 → 5SOUTH 09-09 15:09 → ENPENDDIS 09-13 → 5SOUTH 09-13 11:30
PROVIDERS: Hospitalist; Physician Assistant; Thoracic Surgery (Cardiothoracic Vascular Surgery)
DX: K56.609 Unspecified intestinal obstruction, unspecified as to partial versus complete obstruction (principal); N17.0 Acute kidney failure with tubular necrosis; I95.9 Hypotension, unspecified; R65.10 Systemic inflammatory response syndrome (SIRS) of non-infectious origin without acute organ dysfunction; E86.0 Dehydration; E87.2 Acidosis; E87.6 Hypokalemia; F11.20 Opioid dependence, uncomplicated; E11.9 Type 2 diabetes mellitus without complications; G40.909 Epilepsy, unspecified, not intractable, without status epilepticus; I10 Essential (primary) hypertension; K21.9 Gastro-esophageal reflux disease without esophagitis; J45.909 Unspecified asthma, uncomplicated; G89.4 Chronic pain syndrome; M54.9 Dorsalgia, unspecified; E78.5 Hyperlipidemia, unspecified; G43.909 Migraine, unspecified, not intractable, without status migrainosus; F31.9 Bipolar disorder, unspecified; F41.1 Generalized anxiety disorder; E66.9 Obesity, unspecified; Z68.35 Body mass index [BMI] 35.0-35.9, adult; F10.11 Alcohol abuse, in remission; F14.11 Cocaine abuse, in remission; Z82.3 Family history of stroke; Z82.49 Family history of ischemic heart disease and other diseases of the circulatory system; Z83.3 Family history of diabetes mellitus; Z98.84 Bariatric surgery status
CPT/HCPCS: 71045; 74176; 80048; 80053; 81003; 82948; 83605; 83690; 83735; 84100; 85025; 85027; 87040; 94799; 99281; 99285; J0692; J1170; J1644; J2060; J2270; J2405; J3480; J7030; J7042; J7120; S0028; S0030

== ENCOUNTER 2017-09-19 15:45 | Inpatient (IN) | payer OTHER ==
[~2017-09-19] VITALS: Ht 157.5 cm; Wt 90.4 kg
[2017-09-19 16:51] LABS: BASOPHIL (%) 0.2 % (0-1); EOSINOPHIL (%) 0.6 % (0-5); EOSINOPHIL COUNT 0.1 K/uL (0-0.3); HEMOGLOBIN 10.1 G/DL (11.9-15.5); IMMATURE GRANULOCYTE (%) 0.4 % (0.0-0.7); LYMPHOCYTE COUNT 1.2 K/uL (1.0-2.8); MCH 28.7 PG (29.0-34.0); MCHC 32.6 G/DL (30.0-36.0); MCV 88.1 FL (83-99); MONOCYTE (%) 3.5 % (3-12); MONOCYTE COUNT 0.5 K/uL (0-0.8); NEUTROPHIL (%) 86.3 % (45-76); NEUTROPHIL COUNT 11.5 K/uL (1.8-6.4); RBC DIS.WIDTH-CV 15.7 % (11.8-14.6); RBC DIS.WIDTH-SD 50.4 % (39-53); RED BLOOD COUNT 3.52 M/uL (3.80-5.20); WHITE BLOOD COUNT 13.4 K/uL (4.1-10.2)
[2017-09-19 16:55] LABS: PLATELET COUNT 460 K/uL (156-360)
[2017-09-19 17:00] LABS: CHLORIDE 100 mEq/L (99-109); POTASSIUM 3.8 mEq/L (3.7-5.4); SODIUM 137 mEq/L (136-147)
[2017-09-19 17:01] LABS: GLUCOSE 100 mg/dL (70-99)
[2017-09-19 17:05] LABS: GFR ESTIMATE (CALCULATED) 24 mL/min/
[2017-09-19 17:07] LABS: CREATININE 2.3 mg/dL (0.6-1.3); UREA NITROGEN (BUN) 50 mg/dL (9-23)
[2017-09-19 19:22] LABS: TROP-I INTERPRETATION NEGATIVE; TROPONIN-I < 0.01 ng/mL (0.0-0.30)
[2017-09-19] MEDS ORDERED: PERCOCET 10/1 TABLET PO (19:36)
[2017-09-19] MEDS ORDERED: ZOFRAN4 MG PO (19:36)
[2017-09-19 22:08] VITALS: BP 135/65
[2017-09-19 23:31] VITALS: BP 140/64
[2017-09-20 04:01] VITALS: BP 125/79
[2017-09-20 06:43] LABS: BASOPHIL (%) 0.1 % (0-1); EOSINOPHIL (%) 0 % (0-5); HEMATOCRIT 29.4 % (36.0-46.0); HEMOGLOBIN 9.2 G/DL (11.9-15.5); IMMATURE GRANULOCYTE (%) 0.6 % (0.0-0.7); LYMPHOCYTE (%) 6.8 % (15-42); LYMPHOCYTE COUNT 0.6 K/uL (1.0-2.8); MCH 28.1 PG (29.0-34.0); MCHC 31.3 G/DL (30.0-36.0); MCV 89.9 FL (83-99); MONOCYTE (%) 3.8 % (3-12); MONOCYTE COUNT 0.3 K/uL (0-0.8); NEUTROPHIL (%) 88.7 % (45-76); PLATELET COUNT 428 K/uL (156-360); RBC DIS.WIDTH-CV 15.7 % (11.8-14.6); RBC DIS.WIDTH-SD 51.8 % (39-53); RED BLOOD COUNT 3.27 M/uL (3.80-5.20)
[2017-09-20 07:18] LABS: ALBUMIN 2.6 G/DL (3.2-4.8); ALKALINE PHOSPHATASE 90 IU/L (3-129); ALT (GPT) 11 IU/L (3-49); AST (GOT) 13 IU/L (2-34); CHLORIDE 109 MEQ/L (99-109); CREATININE 1.2 MG/DL (0.6-1.3); GFR ESTIMATE (CALCULATED) 51 mL/min/; GLUCOSE 109 mg/dL (70-99); POTASSIUM 4.9 MEQ/L (3.7-5.4); SODIUM 142 MEQ/L (136-147); TOTAL BILIRUBIN 0.3 MG/DL (0.0-1.0); TOTAL PROTEIN 5.2 G/DL (6.4-8.3); UREA NITROGEN (BUN) 37 mg/dL (9-23)
[2017-09-20 07:25] VITALS: BP 123/77
[2017-09-20 10:57] VITALS: BP 119/74
[2017-09-20 15:11] VITALS: BP 116/72
[2017-09-20 23:58] VITALS: BP 84/48
[2017-09-21 03:27] VITALS: BP 88/58
[2017-09-21 04:05] LABS: BASOPHIL (%) 0.2 % (0-1); EOSINOPHIL (%) 0.9 % (0-5); EOSINOPHIL COUNT 0.1 K/uL (0-0.3); HEMATOCRIT 26.2 % (36.0-46.0); HEMOGLOBIN 8.4 G/DL (11.9-15.5); IMMATURE GRANULOCYTE (%) 0.5 % (0.0-0.7); LYMPHOCYTE (%) 31.9 % (15-42); LYMPHOCYTE COUNT 2.7 K/uL (1.0-2.8); MCHC 32.1 G/DL (30.0-36.0); MCV 90.3 FL (83-99); MONOCYTE (%) 6.4 % (3-12); MONOCYTE COUNT 0.5 K/uL (0-0.8); NEUTROPHIL (%) 60.1 % (45-76); NEUTROPHIL COUNT 5.1 K/uL (1.8-6.4); PLATELET COUNT 376 K/uL (156-360); RBC DIS.WIDTH-CV 15.9 % (11.8-14.6); RBC DIS.WIDTH-SD 52.6 % (39-53); WHITE BLOOD COUNT 8.5 K/uL (4.1-10.2)
[2017-09-21 04:15] LABS: CHLORIDE 108 mEq/L (99-109); POTASSIUM 4.1 mEq/L (3.7-5.4); SODIUM 138 mEq/L (136-147)
[2017-09-21 04:16] LABS: GLUCOSE 82 mg/dL (70-99)
[2017-09-21 04:20] LABS: CREATININE 0.8 mg/dL (0.6-1.3); GFR ESTIMATE (CALCULATED) > 59 mL/min/
[2017-09-21 04:21] LABS: UREA NITROGEN (BUN) 25 mg/dL (9-23)
[2017-09-21 04:28] VITALS: BP 101/57
[2017-09-21 08:34] VITALS: BP 128/65
[2017-09-21 15:33] VITALS: BP 143/76
[2017-09-21 20:09] VITALS: BP 133/68
[2017-09-22 00:17] VITALS: BP 164/81
[2017-09-22 04:00] VITALS: BP 188/87
[2017-09-22 06:56] LABS: BASOPHIL (%) 0.3 % (0-1); EOSINOPHIL (%) 0 % (0-5); HEMATOCRIT 34.7 % (36.0-46.0); IMMATURE GRANULOCYTE (%) 3.8 % (0.0-0.7); LYMPHOCYTE (%) 20.2 % (15-42); LYMPHOCYTE COUNT 1.2 K/uL (1.0-2.8); MCV 93.3 FL (83-99); MONOCYTE COUNT 0.2 K/uL (0-0.8); NEUTROPHIL (%) 72.7 % (45-76); NEUTROPHIL COUNT 4.4 K/uL (1.8-6.4); PLATELET COUNT 449 K/uL (156-360); RBC DIS.WIDTH-CV 15.3 % (11.8-14.6); RBC DIS.WIDTH-SD 53.1 % (39-53)
[2017-09-22 06:59] LABS: HEMOGLOBIN 10.4 G/DL (11.9-15.5); RED BLOOD COUNT 3.72 M/uL (3.80-5.20)
[2017-09-22 07:16] LABS: CHLORIDE 106 MEQ/L (99-109); SODIUM 140 MEQ/L (136-147)
[2017-09-22 07:21] LABS: CREATININE 0.8 MG/DL (0.6-1.3); GFR ESTIMATE (CALCULATED) > 59 mL/min/; UREA NITROGEN (BUN) 19 mg/dL (9-23)
[2017-09-22 07:22] LABS: GLUCOSE 110 mg/dL (70-99); POTASSIUM 5.4 MEQ/L (3.7-5.4)
[2017-09-22 08:03] VITALS: BP 155/94
[2017-09-22 11:12] LABS: HIV-1/2 AB/AG COMBO Nonreactive
[2017-09-22 23:39] VITALS: BP 208/107
[2017-09-23 03:54] VITALS: BP 188/100
[2017-09-23 06:58] LABS: HEMATOCRIT 30.8 % (36.0-46.0); HEMOGLOBIN 9.7 G/DL (11.9-15.5); MCH 28.2 PG (29.0-34.0); MCHC 31.5 G/DL (30.0-36.0); MCV 89.5 FL (83-99); PLATELET COUNT 496 K/uL (156-360); RBC DIS.WIDTH-CV 15.5 % (11.8-14.6); RBC DIS.WIDTH-SD 50.6 % (39-53); RED BLOOD COUNT 3.44 M/uL (3.80-5.20); WHITE BLOOD COUNT 8.7 K/uL (4.1-10.2)
[2017-09-23 07:14] LABS: CHLORIDE 103 MEQ/L (99-109); CREATININE 0.9 MG/DL (0.6-1.3); GFR ESTIMATE (CALCULATED) > 59 mL/min/; GLUCOSE 104 mg/dL (70-99); POTASSIUM 5.2 MEQ/L (3.7-5.4); SODIUM 140 MEQ/L (136-147); UREA NITROGEN (BUN) 18 mg/dL (9-23)
[2017-09-23 07:53] VITALS: BP 150/90
[2017-09-23 16:46] VITALS: BP 158/98
[2017-09-23 23:52] VITALS: BP 154/62
[2017-09-24 06:25] LABS: HEMATOCRIT 30.1 % (36.0-46.0); HEMOGLOBIN 9.8 G/DL (11.9-15.5); MCH 28.7 PG (29.0-34.0); MCHC 32.6 G/DL (30.0-36.0); PLATELET COUNT 490 K/uL (156-360); RBC DIS.WIDTH-CV 15.4 % (11.8-14.6); RBC DIS.WIDTH-SD 49.1 % (39-53); RED BLOOD COUNT 3.42 M/uL (3.80-5.20); WHITE BLOOD COUNT 10.3 K/uL (4.1-10.2)
[2017-09-24 06:48] LABS: CHLORIDE 101 MEQ/L (99-109); CREATININE 0.7 MG/DL (0.6-1.3); GFR ESTIMATE (CALCULATED) > 59 mL/min/; GLUCOSE 118 mg/dL (70-99); POTASSIUM 4.5 MEQ/L (3.7-5.4); SODIUM 138 MEQ/L (136-147); UREA NITROGEN (BUN) 16 mg/dL (9-23)
[2017-09-24 07:26] VITALS: BP 179/84
[2017-09-24 15:07] VITALS: BP 183/86
[2017-09-24 23:30] VITALS: BP 141/82
[2017-09-25 07:29] VITALS: BP 188/95
[2017-09-25] MEDS ORDERED: CEFDINIR300 MG PO (11:24)
[2017-09-25] MEDS ORDERED: MUCINEX600 MG PO (11:26)
[2017-09-25] MEDS ORDERED: PREDNISONE5 M1 PO (11:27)
[2017-09-25] MEDS ORDERED: FLORASTOR250 MG PO (11:28)
[2017-09-25 11:38] VITALS: BP 186/94
[2017-09-25 23:30] VITALS: BP 117/55
[2017-09-26 02:16] LABS: APPEARANCE CLEAR ((CLEAR)); BILIRUBIN NEGATIVE; BLOOD NEGATIVE; COLOR YELLOW ((YELLOW)); GLUCOSE (STRIP) NEGATIVE; KETONES NEGATIVE; LEUKOCYTES NEGATIVE; NITRITE NEGATIVE; PROTEIN (STRIP) NEGATIVE; SPECIFIC GRAVITY 1.008 (1.000-1.030); UCUL ADDED? NO; UROBILINOGEN 0.2 MG/DL (0.2-1.0)
[2017-09-26 06:46] LABS: BASOPHIL (%) 0.1 % (0-1); EOSINOPHIL (%) 0 % (0-5); HEMATOCRIT 32.2 % (36.0-46.0); HEMOGLOBIN 10.3 G/DL (11.9-15.5); IMMATURE GRANULOCYTE (%) 1.9 % (0.0-0.7); LYMPHOCYTE (%) 17.4 % (15-42); LYMPHOCYTE COUNT 1.9 K/uL (1.0-2.8); MCH 28.1 PG (29.0-34.0); MCV 87.7 FL (83-99); MONOCYTE COUNT 0.6 K/uL (0-0.8); NEUTROPHIL (%) 75.6 % (45-76); NEUTROPHIL COUNT 8.3 K/uL (1.8-6.4); PLATELET COUNT 417 K/uL (156-360); RBC DIS.WIDTH-CV 15.6 % (11.8-14.6); RBC DIS.WIDTH-SD 49.7 % (39-53); RED BLOOD COUNT 3.67 M/uL (3.80-5.20)
[2017-09-26 07:19] LABS: CHLORIDE 100 MEQ/L (99-109); CREATININE 0.6 MG/DL (0.6-1.3); GFR ESTIMATE (CALCULATED) > 59 mL/min/; POTASSIUM 4.2 MEQ/L (3.7-5.4); SODIUM 137 MEQ/L (136-147); UREA NITROGEN (BUN) 17 mg/dL (9-23)
[2017-09-26 07:43] VITALS: BP 132/67
[2017-09-26 07:47] LABS: GLUCOSE 87 mg/dL (70-99)
[2017-09-26] MEDS ORDERED: AMLODIPINE BESY10 MG PO (11:40)
== END 2017-09-26 13:22 | disposition home health service (06) | DRG 871 ==
LOC: EME 15:45 → EDOF 19:07 → 5SOUTH 19:07 → ENRESERV 19:18 → CANRESERV 19:18 → ENRESERV 20:20 → 5SOUTH 21:52 → ENPENDDIS 09-26 11:51 → 5SOUTH 09-26 13:22
PROVIDERS: Internal Medicine; Internal Medicine Pulmonary Disease; Physician Assistant; Physician Assistant Medical
DX: A41.9 Sepsis, unspecified organism (principal); J15.9 Unspecified bacterial pneumonia; J96.01 Acute respiratory failure with hypoxia; J44.0 Chronic obstructive pulmonary disease with (acute) lower respiratory infection; Y95 Nosocomial condition; N17.9 Acute kidney failure, unspecified; I12.9 Hypertensive chronic kidney disease with stage 1 through stage 4 chronic kidney disease, or unspecified chronic kidney disease; N18.9 Chronic kidney disease, unspecified; R13.10 Dysphagia, unspecified; J44.1 Chronic obstructive pulmonary disease with (acute) exacerbation; E86.0 Dehydration; E66.9 Obesity, unspecified; Z68.36 Body mass index [BMI] 36.0-36.9, adult; E78.5 Hyperlipidemia, unspecified; G43.909 Migraine, unspecified, not intractable, without status migrainosus; D64.9 Anemia, unspecified; K21.9 Gastro-esophageal reflux disease without esophagitis; N39.41 Urge incontinence; R26.9 Unspecified abnormalities of gait and mobility; Z91.81 History of falling; G89.21 Chronic pain due to trauma; M54.9 Dorsalgia, unspecified; M79.604 Pain in right leg; F41.9 Anxiety disorder, unspecified; F31.9 Bipolar disorder, unspecified; F11.20 Opioid dependence, uncomplicated; F17.200 Nicotine dependence, unspecified, uncomplicated; Z71.6 Tobacco abuse counseling; F10.11 Alcohol abuse, in remission; F19.11 Other psychoactive substance abuse, in remission; Z86.32 Personal history of gestational diabetes; Z87.19 Personal history of other diseases of the digestive system; Z98.84 Bariatric surgery status; Z98.1 Arthrodesis status; Z90.49 Acquired absence of other specified parts of digestive tract; Z88.0 Allergy status to penicillin; Z82.49 Family history of ischemic heart disease and other diseases of the circulatory system; Z82.3 Family history of stroke
CPT/HCPCS: 71045; 71046; 71250; 78582; 80048; 80053; 80202; 81003; 83605; 84484; 85025; 85027; 85379; 87040; 87070; 87205; 87389; 87449; 87502; 87641; 92526 GN; 92610 GN; 93005; 93970; 94640; 94640 76; 94667; 94668; 94760; 94799; 97530 GO; 97530 GP; 99202; 99281; 99285; A9540; A9567; J0456; J0692; J1100; J1644; J2920; J3370; J7030; J7120; J7512; J7644

== ENCOUNTER 2017-11-24 18:43 | Inpatient (IN) | payer OTHER ==
[~2017-11-24] VITALS: Ht 157.5 cm; Wt 85.8 kg
[~2017-11-24 18:43] MED LIST changes: +AMLODIPINE BESY10 MG PO; +CEFDINIR300 MG PO; +FLORASTOR250 MG PO; +MUCINEX600 MG PO; +PREDNISONE5 M1 PO; -RISPERDAL1 MG PO; +RISPERDAL2 MG PO
[2017-11-24 19:33] LABS: HEMATOCRIT 39.7 % (36.0-46.0); HEMOGLOBIN 13.4 G/DL (11.9-15.5); MCHC 33.8 G/DL (30.0-36.0); MCV 88.8 FL (83-99); RBC DIS.WIDTH-SD 45.1 % (39-53); RED BLOOD COUNT 4.47 M/uL (3.80-5.20); WHITE BLOOD COUNT 14.3 K/uL (4.1-10.2)
[2017-11-24 20:03] LABS: ALBUMIN 3.5 g/dL (3.2-4.8)
[2017-11-24 20:04] LABS: CHLORIDE 107 mEq/L (99-109); POTASSIUM 3.9 mEq/L (3.7-5.4); SODIUM 143 mEq/L (136-147)
[2017-11-24 20:06] LABS: GLUCOSE 117 mg/dL (70-99); TOTAL PROTEIN 5.9 g/dL (6.4-8.3)
[2017-11-24 20:08] LABS: TOTAL BILIRUBIN 0.4 mg/dL (0.0-1.0)
[2017-11-24 20:09] LABS: ALKALINE PHOSPHATASE 137 IU/L (3-129)
[2017-11-24 20:10] LABS: CREATININE 0.7 mg/dL (0.6-1.3); GFR ESTIMATE (CALCULATED) > 59 mL/min/
[2017-11-24 20:11] LABS: AST (GOT) 14 IU/L (2-34); UREA NITROGEN (BUN) 7 mg/dL (9-23)
[2017-11-24 20:13] LABS: ALT (GPT) 7 IU/L (3-49)
[2017-11-24 20:50] LABS: PLAT.SUFFICIENCY ADEQUATE; PLATELET CLUMPS PRESENT - PLATELET COUNT APPEARS ADQ.; PLATELET COUNT UNABLE TO REPORT K/uL (156-360)
[2017-11-24 21:00] LABS: APPEARANCE CLEAR ((CLEAR)); BILIRUBIN NEGATIVE; BLOOD NEGATIVE; COLOR YELLOW ((YELLOW)); GLUCOSE (STRIP) NEGATIVE; KETONES NEGATIVE; LEUKOCYTES NEGATIVE; NITRITE NEGATIVE; PROTEIN (STRIP) NEGATIVE; SPECIFIC GRAVITY 1.026 (1.000-1.030); UCUL ADDED? NO; UROBILINOGEN 0.2 MG/DL (0.2-1.0)
[2017-11-24] MEDS ORDERED: NORVASC10 MG PO (21:53)
[2017-11-24] MEDS ORDERED: FLORASTOR250 MG PO (21:54)
[2017-11-24] MEDS ORDERED: IRON325 M1 PO (21:54)
[2017-11-24] MEDS ORDERED: FUROSEMIDE20 MG PO (21:54)
[2017-11-25] VITALS (8 sets, daily range): BP systolic 130–154; BP diastolic 66–97
[2017-11-25 05:43] LABS: BASOPHIL (%) 0.5 % (0-1); BASOPHIL COUNT 0.1 K/uL (0-0.1); EOSINOPHIL (%) 0.7 % (0-5); EOSINOPHIL COUNT 0.1 K/uL (0-0.3); HEMATOCRIT 35.2 % (36.0-46.0); IMMATURE GRANULOCYTE (%) 0.2 % (0.0-0.7); LYMPHOCYTE (%) 22.2 % (15-42); LYMPHOCYTE COUNT 2.2 K/uL (1.0-2.8); MCH 29.6 PG (29.0-34.0); MCHC 32.1 G/DL (30.0-36.0); MCV 92.1 FL (83-99); MONOCYTE COUNT 1.1 K/uL (0-0.8); NEUTROPHIL (%) 65.4 % (45-76); NEUTROPHIL COUNT 6.6 K/uL (1.8-6.4); PLATELET COUNT 351 K/uL (156-360); RBC DIS.WIDTH-CV 14.3 % (11.8-14.6); RED BLOOD COUNT 3.82 M/uL (3.80-5.20); WHITE BLOOD COUNT 10.1 K/uL (4.1-10.2)
[2017-11-25 05:45] LABS: HEMOGLOBIN 11.3 G/DL (11.9-15.5)
[2017-11-25 05:47] LABS: ALKALINE PHOSPHATASE 103 IU/L (3-129); ALT (GPT) 5 IU/L (3-49); AST (GOT) 13 IU/L (2-34); CHLORIDE 110 MEQ/L (99-109); CREATININE 0.7 MG/DL (0.6-1.3); GFR ESTIMATE (CALCULATED) > 59 mL/min/; GLUCOSE 110 mg/dL (70-99); POTASSIUM 3.7 MEQ/L (3.7-5.4); SODIUM 144 MEQ/L (136-147); TOTAL BILIRUBIN 0.4 MG/DL (0.0-1.0); TOTAL PROTEIN 5.3 G/DL (6.4-8.3); UREA NITROGEN (BUN) 12 mg/dL (9-23)
[2017-11-26] VITALS (9 sets, daily range): BP systolic 141–186; BP diastolic 78–115
[2017-11-26 05:44] LABS: BASOPHIL (%) 0.2 % (0-1); EOSINOPHIL (%) 0 % (0-5); HEMATOCRIT 32.9 % (36.0-46.0); HEMOGLOBIN 10.7 G/DL (11.9-15.5); IMMATURE GRANULOCYTE (%) 0.3 % (0.0-0.7); LYMPHOCYTE (%) 11.3 % (15-42); LYMPHOCYTE COUNT 1.5 K/uL (1.0-2.8); MCH 30.1 PG (29.0-34.0); MCHC 32.5 G/DL (30.0-36.0); MCV 92.4 FL (83-99); MONOCYTE (%) 5.7 % (3-12); MONOCYTE COUNT 0.7 K/uL (0-0.8); NEUTROPHIL (%) 82.5 % (45-76); NEUTROPHIL COUNT 10.6 K/uL (1.8-6.4); PLATELET COUNT 294 K/uL (156-360); RBC DIS.WIDTH-CV 14.3 % (11.8-14.6); RBC DIS.WIDTH-SD 48.5 % (39-53); RED BLOOD COUNT 3.56 M/uL (3.80-5.20); WHITE BLOOD COUNT 12.9 K/uL (4.1-10.2)
[2017-11-26 06:09] LABS: CHLORIDE 110 MEQ/L (99-109); CREATININE 0.6 MG/DL (0.6-1.3); GFR ESTIMATE (CALCULATED) > 59 mL/min/; GLUCOSE 106 mg/dL (70-99); POTASSIUM 3.7 MEQ/L (3.7-5.4); SODIUM 143 MEQ/L (136-147); UREA NITROGEN (BUN) 12 mg/dL (9-23)
[2017-11-27] VITALS (7 sets, daily range): BP systolic 113–176; BP diastolic 58–104
[2017-11-27 05:54] LABS: BASOPHIL (%) 0.2 % (0-1); EOSINOPHIL (%) 0.3 % (0-5); HEMATOCRIT 31.5 % (36.0-46.0); HEMOGLOBIN 10.1 G/DL (11.9-15.5); IMMATURE GRANULOCYTE (%) 0.9 % (0.0-0.7); LYMPHOCYTE (%) 15.9 % (15-42); LYMPHOCYTE COUNT 1.6 K/uL (1.0-2.8); MCH 28.9 PG (29.0-34.0); MCHC 32.1 G/DL (30.0-36.0); MCV 90.3 FL (83-99); MONOCYTE COUNT 0.5 K/uL (0-0.8); NEUTROPHIL (%) 77.7 % (45-76); NEUTROPHIL COUNT 7.7 K/uL (1.8-6.4); PLATELET COUNT 287 K/uL (156-360); RBC DIS.WIDTH-CV 14.4 % (11.8-14.6); RED BLOOD COUNT 3.49 M/uL (3.80-5.20)
[2017-11-27 06:09] LABS: CHLORIDE 103 MEQ/L (99-109); CREATININE 0.4 MG/DL (0.6-1.3); GFR ESTIMATE (CALCULATED) > 59 mL/min/; GLUCOSE 94 mg/dL (70-99); POTASSIUM 3.5 MEQ/L (3.7-5.4); SODIUM 140 MEQ/L (136-147); UREA NITROGEN (BUN) 8 mg/dL (9-23)
[2017-11-28 04:33] VITALS: BP 133/73
[2017-11-28 06:42] LABS: BASOPHIL (%) 0.3 % (0-1); EOSINOPHIL (%) 0.8 % (0-5); EOSINOPHIL COUNT 0.1 K/uL (0-0.3); HEMATOCRIT 29.2 % (36.0-46.0); HEMOGLOBIN 9.4 G/DL (11.9-15.5); IMMATURE GRANULOCYTE (%) 0.3 % (0.0-0.7); LYMPHOCYTE (%) 24.8 % (15-42); LYMPHOCYTE COUNT 1.8 K/uL (1.0-2.8); MCH 28.8 PG (29.0-34.0); MCHC 32.2 G/DL (30.0-36.0); MCV 89.6 FL (83-99); MONOCYTE (%) 8.6 % (3-12); MONOCYTE COUNT 0.6 K/uL (0-0.8); NEUTROPHIL (%) 65.2 % (45-76); NEUTROPHIL COUNT 4.6 K/uL (1.8-6.4); PLATELET COUNT 296 K/uL (156-360); RBC DIS.WIDTH-CV 14.1 % (11.8-14.6); RBC DIS.WIDTH-SD 46.2 % (39-53); RED BLOOD COUNT 3.26 M/uL (3.80-5.20); WHITE BLOOD COUNT 7.1 K/uL (4.1-10.2)
[2017-11-28 07:05] LABS: CHLORIDE 100 MEQ/L (99-109); CREATININE 0.4 MG/DL (0.6-1.3); GFR ESTIMATE (CALCULATED) > 59 mL/min/; GLUCOSE 78 mg/dL (70-99); POTASSIUM 2.8 MEQ/L (3.7-5.4); SODIUM 139 MEQ/L (136-147); UREA NITROGEN (BUN) 9 mg/dL (9-23)
[2017-11-28 08:17] VITALS: BP 151/89
[2017-11-28 11:45] VITALS: BP 139/75
[2017-11-28 15:33] LABS: CHLORIDE 101 MEQ/L (99-109); SODIUM 140 MEQ/L (136-147)
[2017-11-28 15:39] LABS: CREATININE 0.4 MG/DL (0.6-1.3); GFR ESTIMATE (CALCULATED) > 59 mL/min/; GLUCOSE 88 mg/dL (70-99); UREA NITROGEN (BUN) 11 mg/dL (9-23)
[2017-11-28 15:43] LABS: POTASSIUM 3.4 MEQ/L (3.7-5.4)
[2017-11-28 16:32] VITALS: BP 162/92
[2017-11-28 19:38] VITALS: BP 140/83
[2017-11-29 00:02] VITALS: BP 124/67
[2017-11-29 05:55] LABS: CHLORIDE 101 MEQ/L (99-109); CREATININE 0.4 MG/DL (0.6-1.3); GFR ESTIMATE (CALCULATED) > 59 mL/min/; GLUCOSE 86 mg/dL (70-99); MAGNESIUM 1.7 mg/dl (1.3-2.7); POTASSIUM 3.2 MEQ/L (3.7-5.4); SODIUM 140 MEQ/L (136-147); UREA NITROGEN (BUN) 9 mg/dL (9-23)
[2017-11-29 07:59] VITALS: BP 139/73
[2017-11-29] MEDS ORDERED: ONDANSETRON HCL8 MG PO (08:40)
[2017-11-29] MEDS ORDERED: COLACE100 MG PO (08:40)
== END 2017-11-29 13:41 | disposition home or self-care (01) | DRG 330 ==
LOC: EME 18:43 → EDOF 22:48 → 3EAST 22:48 → ENRESERV 22:50 → 3EAST 11-25 00:23
PROVIDERS: Internal Medicine; Nurse Practitioner Family; Physician Assistant; Surgery
PROC: 0DB80ZZ Excision of Small Intestine, Open Approach (ICD-10-PCS; principal; 2017-11-25)
DX: K55.1 Chronic vascular disorders of intestine (principal); Z98.84 Bariatric surgery status; Z53.31 Laparoscopic surgical procedure converted to open procedure; E87.6 Hypokalemia; D72.829 Elevated white blood cell count, unspecified; R00.0 Tachycardia, unspecified; G89.18 Other acute postprocedural pain; I10 Essential (primary) hypertension; E66.9 Obesity, unspecified; Z68.34 Body mass index [BMI] 34.0-34.9, adult; J44.9 Chronic obstructive pulmonary disease, unspecified; E78.5 Hyperlipidemia, unspecified; M54.9 Dorsalgia, unspecified; G89.29 Other chronic pain; K21.9 Gastro-esophageal reflux disease without esophagitis; G43.909 Migraine, unspecified, not intractable, without status migrainosus; F11.20 Opioid dependence, uncomplicated; F14.11 Cocaine abuse, in remission; F31.9 Bipolar disorder, unspecified; F41.9 Anxiety disorder, unspecified; Z98.1 Arthrodesis status; Z82.3 Family history of stroke; Z82.49 Family history of ischemic heart disease and other diseases of the circulatory system; Z83.3 Family history of diabetes mellitus
CPT/HCPCS: 71045; 74177; 80048; 80048 91; 80053; 81003; 83605; 83735; 85025; 85027; 88307; 94799; 99202; 99281; 99285; J0131; J0330; J0360; J0610; J0692; J1100; J1170; J1200; J1644; J1885; J2060; J2250; J2270; J2405; J2550; J2710; J3010; J3370; J3475; J3480; J7030; J7040; S0020; S0028; S0030

== ENCOUNTER 2018-02-13 21:46 | Inpatient (IN) | payer OTHER ==
[~2018-02-13] VITALS: Ht 157.5 cm; Wt 79.2 kg
[~2018-02-13 21:46] MED LIST changes: +COLACE100 MG PO; +FUROSEMIDE20 MG PO; +IRON325 M1 PO; +NORVASC10 MG PO; +ONDANSETRON HCL8 MG PO
[2018-02-13 22:47] LABS: BASOPHIL (%) 0.1 % (0-1); EOSINOPHIL (%) 0.5 % (0-5); EOSINOPHIL COUNT 0.1 K/uL (0-0.3); HEMATOCRIT 34.8 % (36.0-46.0); IMMATURE GRANULOCYTE (%) 0.6 % (0.0-0.7); LYMPHOCYTE (%) 15.7 % (15-42); MCHC 34.5 G/DL (30.0-36.0); MCV 89.9 FL (83-99); MONOCYTE (%) 2.7 % (3-12); MONOCYTE COUNT 0.5 K/uL (0-0.8); NEUTROPHIL (%) 80.4 % (45-76); NEUTROPHIL COUNT 15.6 K/uL (1.8-6.4); PLATELET COUNT 559 K/uL (156-360); RBC DIS.WIDTH-SD 52.6 % (39-53); RED BLOOD COUNT 3.87 M/uL (3.80-5.20); WHITE BLOOD COUNT 19.4 K/uL (4.1-10.2)
[2018-02-13 22:57] LABS: ALBUMIN 2.3 g/dL (3.2-4.8)
[2018-02-13 22:58] LABS: CHLORIDE 106 mEq/L (99-109); SODIUM 139 mEq/L (136-147)
[2018-02-13 23:00] LABS: GLUCOSE 146 mg/dL (70-99); TOTAL PROTEIN 4.7 g/dL (6.4-8.3)
[2018-02-13 23:02] LABS: TOTAL BILIRUBIN 0.5 mg/dL (0.0-1.0)
[2018-02-13 23:03] LABS: ALKALINE PHOSPHATASE 213 IU/L (3-129)
[2018-02-13 23:04] LABS: GFR ESTIMATE (CALCULATED) > 59 mL/min/
[2018-02-13 23:05] LABS: AST (GOT) 95 IU/L (2-34); UREA NITROGEN (BUN) 10 mg/dL (9-23)
[2018-02-13 23:07] LABS: ALT (GPT) 40 IU/L (3-49); LIPASE 23 U/L (1.0-51.0)
[2018-02-13 23:13] LABS: TROP-I INTERPRETATION NEGATIVE; TROPONIN-I 0.02 ng/mL (0.0-0.30)
[2018-02-13 23:49] LABS: C DIFF TOXIN NEGATIVE (NEGATIVE)
[2018-02-14 04:37] VITALS: BP 114/64
[2018-02-14 08:05] VITALS: BP 125/64
[2018-02-14 09:11] LABS: BASOPHIL (%) 0.1 % (0-1); EOSINOPHIL (%) 0 % (0-5); HEMATOCRIT 32.8 % (36.0-46.0); HEMOGLOBIN 10.8 G/DL (11.9-15.5); IMMATURE GRANULOCYTE (%) 0.5 % (0.0-0.7); LYMPHOCYTE (%) 10.7 % (15-42); LYMPHOCYTE COUNT 1.5 K/uL (1.0-2.8); MCH 30.6 PG (29.0-34.0); MCHC 32.9 G/DL (30.0-36.0); MCV 92.9 FL (83-99); MONOCYTE (%) 1.2 % (3-12); MONOCYTE COUNT 0.2 K/uL (0-0.8); NEUTROPHIL (%) 87.5 % (45-76); NEUTROPHIL COUNT 12.1 K/uL (1.8-6.4); PLATELET COUNT 457 K/uL (156-360); RBC DIS.WIDTH-CV 16.2 % (11.8-14.6); RBC DIS.WIDTH-SD 55.3 % (39-53); RED BLOOD COUNT 3.53 M/uL (3.80-5.20); WHITE BLOOD COUNT 13.9 K/uL (4.1-10.2)
[2018-02-14 09:23] LABS: CHLORIDE 108 MEQ/L (99-109); CREATININE 1.1 MG/DL (0.6-1.3); GFR ESTIMATE (CALCULATED) 56 mL/min/; GLUCOSE 128 mg/dL (70-99); SODIUM 141 MEQ/L (136-147); UREA NITROGEN (BUN) 10 mg/dL (9-23)
[2018-02-14 09:25] LABS: POTASSIUM 4.7 MEQ/L (3.7-5.4)
[2018-02-14 10:57] LABS: APPEARANCE CLEAR ((CLEAR)); BILIRUBIN NEGATIVE; BLOOD NEGATIVE; COLOR YELLOW ((YELLOW)); GLUCOSE (STRIP) NEGATIVE; KETONES NEGATIVE; LEUKOCYTES NEGATIVE; NITRITE NEGATIVE; PROTEIN (STRIP) NEGATIVE; SPECIFIC GRAVITY 1.012 (1.000-1.030); UROBILINOGEN 0.2 MG/DL (0.2-1.0)
[2018-02-14 13:58] VITALS: BP 147/77
[2018-02-14 15:34] VITALS: BP 128/60
[2018-02-14 20:49] VITALS: BP 133/80
[2018-02-15 01:00] VITALS: BP 125/78
[2018-02-15 04:40] VITALS: BP 115/66
[2018-02-15 06:11] LABS: HEMATOCRIT 27.7 % (36.0-46.0); HEMOGLOBIN 8.9 G/DL (11.9-15.5); MCH 30.1 PG (29.0-34.0); MCHC 32.1 G/DL (30.0-36.0); MCV 93.6 FL (83-99); PLATELET COUNT 344 K/uL (156-360); RBC DIS.WIDTH-CV 16.4 % (11.8-14.6); RBC DIS.WIDTH-SD 56.6 % (39-53); RED BLOOD COUNT 2.96 M/uL (3.80-5.20); WHITE BLOOD COUNT 6.8 K/uL (4.1-10.2)
[2018-02-15 06:37] LABS: CHLORIDE 110 MEQ/L (99-109); CREATININE 1.2 MG/DL (0.6-1.3); GFR ESTIMATE (CALCULATED) 51 mL/min/; POTASSIUM 4.3 MEQ/L (3.7-5.4); SODIUM 141 MEQ/L (136-147); UREA NITROGEN (BUN) 12 mg/dL (9-23)
[2018-02-15 06:42] LABS: GLUCOSE 77 mg/dL (70-99)
[2018-02-15 07:20] VITALS: BP 115/61
[2018-02-15 11:04] VITALS: BP 139/71
[2018-02-15] MEDS ORDERED: Zeasorb Antifungal T TP (14:45)
[2018-02-15] MEDS ORDERED: METOPROLOL SUCC25 MG PO (14:45)
[2018-02-15] MEDS ORDERED: CIPRO500 MG PO (14:45)
[2018-02-15 15:04] VITALS: BP 108/69
== END 2018-02-15 15:24 | disposition home or self-care (01) | DRG 872 ==
LOC: EME → EDBD 21:46 → EME 21:46 → 5SOUTH 02-14 02:24 → EDOF 02-14 02:24 → ENRESERV 02-14 02:25 → 5SOUTH 02-14 04:02 → ENPENDDIS 02-15 15:21 → 5SOUTH 02-15 15:24
PROVIDERS: Emergency Medicine; Hospitalist; Internal Medicine
DX: A41.9 Sepsis, unspecified organism (principal); L03.314 Cellulitis of groin; E87.2 Acidosis; R21 Rash and other nonspecific skin eruption; T49.0X5A Adverse effect of local antifungal, anti-infective and anti-inflammatory drugs, initial encounter; E87.6 Hypokalemia; R19.7 Diarrhea, unspecified; J43.9 Emphysema, unspecified; F11.20 Opioid dependence, uncomplicated; I10 Essential (primary) hypertension; G40.909 Epilepsy, unspecified, not intractable, without status epilepticus; I25.10 Atherosclerotic heart disease of native coronary artery without angina pectoris; F31.9 Bipolar disorder, unspecified; G89.29 Other chronic pain; M54.9 Dorsalgia, unspecified; D64.9 Anemia, unspecified; Z79.899 Other long term (current) drug therapy; Z98.84 Bariatric surgery status; Z98.1 Arthrodesis status
CPT/HCPCS: 71045; 74176; 74177; 80048; 80053; 81003; 83605; 83630; 83690; 83880; 84484; 85025; 85027; 87040; 87086; 87493; 87506; 93005; 99202; 99281; 99285; J1200; J1644; J1956; J2060; J2920; J2930; J3370; J3480; J7030; S0028

== ENCOUNTER 2018-03-24 13:06 | Emergency (ER) | payer OTHER ==
[~2018-03-24] VITALS: Ht 152.4 cm; Wt 76.4 kg
[~2018-03-24 13:06] MED LIST changes: +CIPRO500 MG PO; +METOPROLOL SUCC25 MG PO; +Zeasorb Antifungal T TP
[2018-03-24 15:01] LABS: APPEARANCE CLEAR ((CLEAR)); BILIRUBIN NEGATIVE; BLOOD NEGATIVE; COLOR YELLOW ((YELLOW)); GLUCOSE (STRIP) NEGATIVE; KETONES NEGATIVE; LEUKOCYTES TRACE; NITRITE NEGATIVE; PROTEIN (STRIP) NEGATIVE; SPECIFIC GRAVITY 1.014 (1.000-1.030)
[2018-03-24 15:06] LABS: BACTERIA NONE SEEN /HPF; EPITHELIAL CELLS 1+ /HPF; MUCUS TRACE /LPF; RED BLOOD CELLS 0-5 /HPF (0-5); UCUL ADDED? NO; WHITE BLOOD CELLS 0-5 /HPF (0-5)
[2018-03-24 15:12] LABS: COCAINE NEGATIVE (150 ng/mL); METHAMPHETAMINE NEGATIVE (500 ng/mL); PHENCYCLIDINE NEGATIVE (25 ng/mL); THC CANNABINOIDS NEGATIVE (50 ng/mL)
[2018-03-24 15:13] LABS: AMPHETAMINE NEGATIVE (500 ng/mL); BARBITURATES NEGATIVE (200 ng/mL); BENZODIAZEPINES NEGATIVE (150 ng/mL); BUPRENORPHINE NEGATIVE (10 ng/mL); METHADONE PRESUMPTIVE POSITIVE (200 ng/mL); OPIATES (MORPHINE) PRESUMPTIVE POSITIVE (100 ng/mL); OXYCODONE PRESUMPTIVE POSITIVE (100 ng/mL); PROPOXYPHENE NEGATIVE (300 ng/mL); TRICYCLIC ANTIDEPRESSANTS NEGATIVE (300 ng/mL)
[2018-03-24 17:34] LABS: HEMATOCRIT 31.9 % (36.0-46.0); HEMOGLOBIN 11.2 G/DL (11.9-15.5); MCH 31.5 PG (29.0-34.0); MCHC 35.1 G/DL (30.0-36.0); MCV 89.6 FL (83-99); PLATELET COUNT 344 K/uL (156-360); RBC DIS.WIDTH-SD 42.3 % (39-53); RED BLOOD COUNT 3.56 M/uL (3.80-5.20); WHITE BLOOD COUNT 8.8 K/uL (4.1-10.2)
[2018-03-24 17:47] LABS: ALBUMIN 2.5 g/dL (3.2-4.8); CHLORIDE 104 mEq/L (99-109); POTASSIUM 3.7 mEq/L (3.7-5.4); SODIUM 138 mEq/L (136-147)
[2018-03-24 17:49] LABS: GLUCOSE 104 mg/dL (70-99); TOTAL PROTEIN 5.2 g/dL (6.4-8.3)
[2018-03-24 17:51] LABS: TOTAL BILIRUBIN 0.4 mg/dL (0.0-1.0)
[2018-03-24 17:52] LABS: SERUM ETHYL ALCOHOL < 10 mg/dL
[2018-03-24 17:53] LABS: ALKALINE PHOSPHATASE 145 IU/L (3-129); CREATININE 0.8 mg/dL (0.6-1.3); GFR ESTIMATE (CALCULATED) > 59 mL/min/
[2018-03-24 17:54] LABS: AST (GOT) 30 IU/L (2-34); UREA NITROGEN (BUN) 13 mg/dL (9-23)
[2018-03-24 17:56] LABS: ALT (GPT) 18 IU/L (3-49)
[2018-03-24 18:01] LABS: QUANTITATIVE HCG < 4.0 MIU/ML
[2018-03-24 19:28] VITALS: BP 135/82
== END 2018-03-24 20:03 | disposition home or self-care (01) ==
LOC: EME 13:06
PROVIDERS: Emergency Medicine
DX: F31.9 Bipolar disorder, unspecified (principal); F11.20 Opioid dependence, uncomplicated; R10.31 Right lower quadrant pain; I10 Essential (primary) hypertension; J44.9 Chronic obstructive pulmonary disease, unspecified; K21.9 Gastro-esophageal reflux disease without esophagitis; F41.9 Anxiety disorder, unspecified; F32.9 Major depressive disorder, single episode, unspecified; Z90.49 Acquired absence of other specified parts of digestive tract; Z79.891 Long term (current) use of opiate analgesic; Z88.0 Allergy status to penicillin
CPT/HCPCS: 74176; 80053; 81003; 84702; 84999; 85027; 90839; 99281; 99284; G0480